=== PATIENT | female | born 1970 | race Caucasian/White ===

== ENCOUNTER 2018-12-27 13:50 | Emergency (ER) | payer SELFPAY ==
[~2018-12-27] VITALS: Ht 167.6 cm; Wt 63.5 kg
--- NOTE | 2018-12-27 14:00 | NUR ---
ED Nurse Note:pt. was BIBA from home with behaivioral complain, she was walking in and out of traffic this morning, [employer] was called by neighbors and pt. was brought to ER for danger to her self and placed on hold for psych evaluation, pt. is A/ox4 on arrival, VSS, ambulatory with steady gait, pt. had strongly denide any SI/HI or hearing voices, blood and urine sent to labs , her belongings in locker #3
[2018-12-27 14:11] VITALS: BP 110/58
--- NOTE | 2018-12-27 14:13 | NUR ---
ED Nurse Note: Pt. stripped down and all belongings were listed down on the form. pt.'s belongings were placed in locker#3
--- NOTE | 2018-12-27 14:50 | NUR ---
ED Nurse Note: hold was lifted off by dr. Gloria, pt. was evaluated in the room in my presence
[2018-12-27 15:12] LABS: BASOPHILS % (AUTO) 0.3 % (0.0-2.0); HEMATOCRIT 36.1 % (37.0-47.0); HEMOGLOBIN 12.5 G/DL (12.0-16.0); LYMPHOCYTES % (AUTO) 16.1 % (20.0-45.0); MEAN CORPUSCULAR VOLUME 91 FL (80-99); MONOCYTES % (AUTO) 5.8 % (1.0-10.0); NEUTROPHILS % (AUTO) 76.7 % (45.0-75.0); PLATELET COUNT 338 K/UL (150-450); RED BLOOD COUNT 3.95 M/UL (4.20-5.40); RED CELL DISTRIBUTION WIDTH 10.7 % (11.6-14.8); WHITE BLOOD COUNT 12.6 K/UL (4.8-10.8)
[2018-12-27 15:13] LABS: ANION GAP 10 mmol/L (5-15); BLOOD UREA NITROGEN 19 mg/dL (7-18); CALCIUM 9.4 MG/DL (8.5-10.1); CARBON DIOXIDE 26 MMOL/L (21-32); CHLORIDE 104 MMOL/L (98-107); CREATININE 0.8 MG/DL (0.55-1.30); POTASSIUM 3.3 MMOL/L (3.5-5.1); SODIUM 140 MMOL/L (136-145)
[2018-12-27 15:23] LABS: ALANINE AMINOTRANSFERASE 23 U/L (12-78); ALBUMIN/GLOBULIN RATIO 1.1 (1.0-2.7); ALKALINE PHOSPHATASE 52 U/L (46-116); ASPARTATE AMINO TRANSFERASE 17 U/L (15-37); CREATINE KINASE 66 U/L (26-308)
--- NOTE | 2018-12-27 15:44 | Emergency Room Report ---
History of Present Illness General Chief Complaint: Behavioral Complaint Source: Family Member Present Illness HPI 48-year-old female with no known significant psychiatric history brought in by [employer] on a 5150 hold due to walking toward traffic. Patient has not expressed suicidal homicidal ideations and denies having any suicidal homicidal ideation to the emergency room today. Patient reports that she was doing a spiritual walk through traffic however did not mean to harm herself. Patient also admits that she uses cannabis for her back pain. Denies generalized pain, changes of mood and sleep, changes of appetite. Denies any past psychiatric history of bipolar disorder, depression, anxiety, schizophrenia. Denies abdominal pain, nausea vomiting, and other associated symptoms. Patient is cooperative, and agrees to be psychiatrically cleared before further action. Dr. Gloria, also patient to follow-up with outpatient psychiatric facilities. Allergies: Coded Allergies: No Known Allergies (Unverified , 12/27/18) Patient History Past Medical History: see triage record Past Surgical History: unable to obtain Family History: unable to obtain Social History: drug use - THC Now: No Immunizations: UTD Reviewed Nursing Documentation: PMH: Agreed; PSxH: Agreed Nursing Documentation-PMH History Of Psychiatric Problem: Yes - bipolar and schizoprenia Review of Systems All Other Systems: negative except mentioned in HPI Physical Exam Vital Signs Date Time Temp Pulse Resp B/P (MAP) Pulse Ox O2 Delivery O2 Flow Rate FiO2 12/27/18 13:47 98.2 70 16 110/58 (75) 98 Room Air Sp02 EP Interpretation: reviewed, normal General Appearance: alert/responsive, no apparent distress, GCS 15, non-toxic Head: atraumatic Eyes: PERRL, lids + conjunctiva normal ENT: hearing intact, no angioedema Neck: supple/symm/no masses, no meningismus Respiratory: effort normal, no wheezing, chest symmetrical Cardiovascular: regular rate, rhythm, no edema Cardiovascular #2: 2+ carotid (R), 2+ carotid (L), 2+ dorsalis pedis (R), 2+ dorsalis pedis (L) Gastrointestinal: non-tender, no mass, non-distended, no rebound/guarding, normal bowel sounds Musculoskeletal: gait & station normal, strength & tone normal, normal ROM, non -tender Neurologic: oriented x3, sensory intact, normal speech Psychiatric: judgment & insight normal, memory normal, mood normal, no suicidal /homicidal ideation, no delusions, affect normal Skin: normal inspection, no rash Lymphatic: normal inspection Medical Decision Making PA Attestation All my diagnosis and treatment plans were reviewed ad discussed with my supervising physician Dr. Aguirre Diagnostic Impression: Primary Impression: Self-destructive behavior Additional Impressions: Cannabis use disorder, mild, abuse UTI (urinary tract infection) ER Course 48-year-old female with no known significant psychiatric history brought in by [employer] on a 5150 hold due to walking toward traffic. Patient has not expressed suicidal homicidal ideations and denies having any suicidal homicidal ideation to the emergency room today. Patient reports that she was doing a spiritual walk through traffic however did not mean to harm herself. Patient also admits that she uses cannabis for her back pain. Denies generalized pain, changes of mood and sleep, changes of appetite. Denies any past psychiatric history of bipolar disorder, depression, anxiety, schizophrenia. Denies abdominal pain, nausea vomiting, and other associated symptoms. Patient is cooperative, and agrees to be psychiatrically cleared before further action. Dr. Gloria, also patient to follow-up with outpatient psychiatric facilities. Ddx considered but are not limited to: generalized anxiety disorder, panic attack, depression with psycotic featurs, bipolar disorder, drug overdose Vital signs: are WNL, pt. is afebrile H&PE are most consistent with: Self-destructive, cannabis use disorder, UTI incidental finding ORDERS: Psychiatric clearance, Macrobid ED INTERVENTIONS: None required at this time. DISCHARGE: At this time pt. is stable for d/c to home. Will provide printed patient care instructions, and any necessary prescriptions. Care plan and follow up instructions have been discussed with the patient prior to discharge. Patient stable to be discharged her a list of mental health institution patient agrees to follow-up with psychiatrist. Patient denies suicidal homicidal ideation and also denies access to firearms EKG Diagnostic Results Rate: normal Rhythm: NSR ST Segments: no acute changes Last Vital Signs Date Time Temp Pulse Resp B/P (MAP) Pulse Ox O2 Delivery O2 Flow Rate FiO2 12/27/18 14:11 98.2 70 16 110/58 98 Room Air Disposition: HOME, SELF-CARE Condition: Stable Scripts Nitrofurantoin Monohyd/M-Cryst* (MACROBID 100 MG*) 100 Mg Capsule 100 MG ORAL EVERY 12 HOURS for 7 Days, #14 CAP Prov: Cassandra Burris 12/27/18 Referrals: NOT CHOSEN IPA/MD,REFERRING (PCP) Patient Instructions: Cannabis Use Disorder, Self-Destructive Behavior, Urinary Tract Infection, Goea-wt-[id number] Additional Instructions: Follow-up with a psychiatrist. I have provided you a list of mental health facilities that he can voluntarily go to with your family. At this time due to the patient not having any suicidal or homicidal ideation patient is medically cleared to follow-up with psychiatrist. Cassandra Burris Dec 27, 2018 15:44
[2018-12-27 16:23] LABS: APPEARANCE,URINE SLIGHTLY CLOUDY; BILIRUBIN, URINE NEGATIVE (NEGATIVE); GLUCOSE, URINE (UA) NEGATIVE (NEGATIVE); KETONES,URINE 3+ (NEGATIVE); LEUKOCYTE ESTERASE ,URINE 3+ (NEGATIVE); NITRITE,URINE NEGATIVE (NEGATIVE); PH,URINE 6 (4.5-8.0); PROTEIN,URINE 2+ (NEGATIVE); UROBILINOGEN,URINE NORMAL MG/DL (0.0-1.0)
[2018-12-27 16:26] LABS: COLOR,URINE PALE YELLOW
[2018-12-27] MEDS ORDERED: NITROFURANTOIN100 M2 ORAL (16:35)
--- NOTE | 2018-12-27 17:20 | NUR ---
ED Nurse Note:spoke to pt's son from [place] he will provide place to stay for his mother, [place] and then to [place], pt. verbalized understanding where she needs to go to get on the bus and she has enough money for her trip
--- NOTE | 2018-12-27 17:35 | NUR ---
ER DISCHARGE NOTE: Patient is cleared to be discharged per ERMD, pt is aox4, on room air, with stable vital signs. pt was given dc and prescription instructions, pt was able to verbalize understanding, pt is able to ambulate with steady gait. pt took all belongings.
[2018-12-27 18:08] VITALS: BP 110/58
--- NOTE | 2018-12-28 14:16 | Cardiology Report ---
APPROVED REPORT EKG Measurement Heart [id number] Normal sinus rhythm with sinus arrhythmia Normal ECG
--- NOTE | 2018-12-28 18:30 | Consultation ---
DATE OF CONSULTATION: 12/27/2018 CONSULTING PHYSICIAN: Galina Gloria M.D. HISTORY OF PRESENT ILLNESS: This is a 48-year-old female with a history of cannabis abuse and undiagnosed psychiatric disorder who has been admitted to the hospital on a 5150. Apparently, the patient was walking in the traffic. The patient stated "she was doing a spiritual walk." The patient was calm, cooperative, was able to answer the questions. She was not agitated nor delusional. She denied any suicidal thoughts. She stated that she did not want to end her life. She was not endorsing any manic symptoms. PAST PSYCHIATRY HISTORY: She is denying any suicide attempt, any psychiatrist illness. She is not on any psychotropic medication. Using cannabis to "relax." PAST MEDICAL HISTORY: None significant. ALLERGIES: No known drug allergies. SUBSTANCE USE HISTORY: As above. MENTAL STATUS EXAMINATION: The patient is alert, oriented times self, place, and situation. Mood is neutral to anxious. Affect is flat. Thought process is linear and goal oriented. Thought content, no suicidal or homicidal ideation. Cognition is mildly impaired. Insight and judgment is fair. ASSESSMENT: Girard I Cannabis abuse. 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 Girard III As above. Girard IV Low. Girard V 50. PLAN: We will lift the 5150. The patient will be discharged and we recommend to follow up with a psychiatrist after discharge. She is refusing to take any medication. Galina Gloria M.D. DR: THERON JOB#: [id number] CC:
== END 2018-12-27 17:35 | disposition home or self-care (01) ==
LOC: EDBD 13:50 → EMR 14:30
DX: F12.10 Cannabis abuse, uncomplicated (principal); Z72.89 Other problems related to lifestyle; N39.0 Urinary tract infection, site not specified; F23 Brief psychotic disorder; F31.9 Bipolar disorder, unspecified; Z59.0 Homelessness
CPT/HCPCS: 36415; 80053; 80307; 81003; 81025; 82550; 85025; 86850; 86900; 86901; 87086; 87181; 93005; 99285; G0480; 80329